=== PATIENT | male | born 1990 | race Caucasian/White ===

== ENCOUNTER 2016-07-02 22:53 | Emergency (ER) | payer SELFPAY ==
[~2016-07-02] VITALS: Ht 172.7 cm; Wt 72.6 kg
[2016-07-02 23:22] VITALS: BP 118/83
[2016-07-02 23:49] LABS: Basophils # (auto) 0.2 uL; Basophils % (auto) 1.2 % (0.0-2.0); Eosinophils # (auto) 0.1 uL; Eosinophils % (auto) 0.4 % (0.0-7.0); Hematocrit 50.6 % (41.0-53.0); Hemoglobin 16.9 g/dL (13.5-17.5); Lymphocytes # (auto) 1.6 uL; Mean Corpuscular Hgb Conc. 33.4 g/dL (32.0-36.0); Mean Corpuscular Volume 95.8 fL (80.0-100.0); Monocytes # (auto) 0.7 uL; Monocytes % (auto) 5.6 % (0.0-12.0); Neutrophils # (auto) 10.1 uL; Neutrophils % (auto) 79.8 % (37.0-80.0); Platelet Count (auto) 362 10^3/uL (140-450); Red Cell Distribution Width 11.9 % (11.6-16.0); SUSPECT VIEW TRANSMISSION; White Blood Cell 12.7 10^3/uL (4.4-10.8)
[2016-07-02 23:58] LABS: INR 1.11 (0.9-1.15); Partial Thromboplastin Time 24.2 sec (22.64-33.71); Prothrombin Time 11.4 sec (9.37-12.3)
[2016-07-03 00:03] LABS: Potassium 4.4 mmol/L (3.5-5.1)
[2016-07-03 00:08] LABS: Albumin 4.8 g/dL (3.4-5.0); BUN/Creatinine Ratio 10.8
[2016-07-03 00:24] LABS: Bilirubin, Total 0.2 mg/dL (0.2-1.0); Total Protein 8.4 g/dL (6.4-8.2)
== END 2016-07-03 05:28 | disposition left against medical advice (07) ==
LOC: ER 22:58
DX: R07.81 Pleurodynia (principal); Z53.21 Procedure and treatment not carried out due to patient leaving prior to being seen by health care provider; Y08.89XA Assault by other specified means, initial encounter; Y93.89 Activity, other specified; Y99.8 Other external cause status; Y92.89 Other specified places as the place of occurrence of the external cause
CPT/HCPCS: 36415; 70450; 70486; 72125; 80053; 80320; 85025; 85610; 85730; 99281; G0434; 71101

== ENCOUNTER 2018-06-27 10:31 | Emergency (ER) | payer SELFPAY ==
[~2018-06-27] VITALS: Ht 170.2 cm; Wt 77.1 kg
[2018-06-27 10:46] VITALS: BP 142/89
== END 2018-06-27 11:34 | disposition left against medical advice (07) ==
LOC: EDBD 10:31 → ER 10:31
DX: K52.9 Noninfective gastroenteritis and colitis, unspecified (principal)

== ENCOUNTER 2020-05-25 06:11 | Emergency (ER) | payer MEDICAID ==
[~2020-05-25] VITALS: Ht 177.8 cm; Wt 77.1 kg
[2020-05-25 06:55] VITALS: BP 112/65
== END 2020-05-25 09:18 | disposition left against medical advice (07) ==
LOC: EDBD 06:11 → ER 06:11
DX: R56.9 Unspecified convulsions (principal); R11.2 Nausea with vomiting, unspecified; Z53.21 Procedure and treatment not carried out due to patient leaving prior to being seen by health care provider
CPT/HCPCS: 70450

== ENCOUNTER 2021-05-10 07:25 | Emergency (ER) | payer MEDICAID ==
[~2021-05-10] VITALS: Ht 175.3 cm; Wt 79.4 kg
[2021-05-10] MEDS ORDERED: PROMETHAZINE HCL 25 MG/ML 1ML IV ONE (08:00)
[2021-05-10 08:06] VITALS: BP 106/73
[2021-05-10] MEDS ORDERED: SODIUM CHLORIDE 0.9% 1,000 ML IV ONE ×2 (08:30)
[2021-05-10 09:20] LABS: Albumin 3.9 g/dL (3.4-5.0); Calcium 8.4 mg/dL (8.5-10.1); Potassium 3.9 mmol/L (3.5-5.1)
[2021-05-10 09:22] LABS: Basophils # (auto) 0 10 ^3/uL (0-0.2); Basophils % (auto) 0.2 % (0.0-2.0); Eosinophils # (auto) 0 10 ^3/uL (0-0.8); Hematocrit 41.1 % (41.0-53.0); Hemoglobin 14.1 g/dL (13.5-17.5); Lymphocytes # (auto) 0.3 10 ^3/uL (0.4-5.4); Lymphocytes % (auto) 2.5 % (10.0-50.0); Mean Corpuscular Hemoglobin 33.4 pg (28.0-32.0); Mean Corpuscular Hgb Conc. 34.2 g/dL (32.0-36.0); Mean Corpuscular Volume 97.5 fL (80.0-100.0); Monocytes # (auto) 0.8 10 ^3/uL (0-1.3); Monocytes % (auto) 6.1 % (0.0-12.0); Neutrophils % (auto) 91.2 % (37.0-80.0); Nucleated Red Blood Cells % 0.1 %; Red Blood Cells 4.22 10^6/uL (4.5-5.90); Red Cell Distribution Width 12.9 % (11.8-14.3); White Blood Cell 13.2 10^3/uL (4.4-10.8)
[2021-05-10 09:24] LABS: BUN/Creatinine Ratio 13.5; Bilirubin, Total 0.5 mg/dL (0.2-1.0); Total Protein 7.2 g/dL (6.4-8.2)
[2021-05-10] MEDS ORDERED: KETOROLAC TROMETH 30 MG/ML 1ML VIAL IV ONE (09:30)
[2021-05-10 10:00] LABS: Amphetamine Screen, Urine NEGATIVE (NEGATIVE); Barbiturate Scree,Urine NEGATIVE (NEGATIVE); Benzodiazephine Screen, Urine NEGATIVE (NEGATIVE); Cannabinoid Screen, Urine POSITIVE (NEGATIVE); Cocaine Screen, Urine NEGATIVE (NEGATIVE); Phencyclidine Screen, Urine NEGATIVE (NEGATIVE)
[2021-05-10 10:08] LABS: Opiate Scree,Urine NEGATIVE (NEGATIVE)
[2021-05-10 10:40] LABS: Urine Bacteria FEW /hpf (None Seen); Urine Blood TRACE /uL (Negative); Urine Specific Gravity 1.014 (1.001-1.035); Urine WBC <1 /hpf (0 - 3)
== END 2021-05-10 13:16 | disposition home or self-care (01) ==
LOC: ER 07:25 → EDBD 07:25 → ER 13:16
DX: G40.909 Epilepsy, unspecified, not intractable, without status epilepticus (principal); R51.9 Headache, unspecified; R11.2 Nausea with vomiting, unspecified
CPT/HCPCS: 36415; 70450; 74176; 80053; 80307; 80320; 81001; 84484; 85025; 96361; 96374; 96375; 99284; J1885; J2550

== ENCOUNTER 2021-05-28 09:14 | Emergency (ER) | payer MEDICAID ==
[~2021-05-28] VITALS: Ht 180.3 cm; Wt 79.4 kg
[2021-05-28] MEDS ORDERED: SODIUM CHLORIDE 0.9% 1,000 ML IV ONE ×2 (09:30)
[2021-05-28] MEDS ORDERED: LORazepam 2MG/ML-1ML VIAL ONE (09:42)
[2021-05-28] MEDS ORDERED: LORazepam 2MG/ML-1ML VIAL IV ONE (09:45)
[2021-05-28] MEDS ORDERED: ONDANSETRON HCL 4 MG/2 ML VIAL IV ONE (12:15)
[2021-05-28 13:00] LABS: Basophils # (auto) 0 10 ^3/uL (0-0.2); Basophils % (auto) 0.1 % (0.0-2.0); Eosinophils # (auto) 0 10 ^3/uL (0-0.8); Hematocrit 44.3 % (41.0-53.0); Lymphocytes # (auto) 0.4 10 ^3/uL (0.4-5.4); Mean Corpuscular Hemoglobin 33.3 pg (28.0-32.0); Mean Corpuscular Hgb Conc. 33.8 g/dL (32.0-36.0); Mean Corpuscular Volume 98.3 fL (80.0-100.0); Monocytes # (auto) 1.3 10 ^3/uL (0-1.3); Monocytes % (auto) 7.5 % (0.0-12.0); Neutrophils # (auto) 16.2 10 ^3/uL (1.6-8.6); Neutrophils % (auto) 90.4 % (37.0-80.0); Red Blood Cells 4.51 10^6/uL (4.5-5.90); Red Cell Distribution Width 13.3 % (11.8-14.3); White Blood Cell 17.9 10^3/uL (4.4-10.8)
[2021-05-28 13:03] LABS: Urine Bacteria NONE SEEN /hpf (None Seen); Urine Blood 1+ /uL (Negative); Urine Specific Gravity 1.013 (1.001-1.035); Urine WBC 39 /hpf (0 - 3)
[2021-05-28 13:15] LABS: Amphetamine Screen, Urine NEGATIVE (NEGATIVE); Barbiturate Scree,Urine NEGATIVE (NEGATIVE); Benzodiazephine Screen, Urine POSITIVE (NEGATIVE); Cannabinoid Screen, Urine POSITIVE (NEGATIVE); Cocaine Screen, Urine NEGATIVE (NEGATIVE); Opiate Scree,Urine NEGATIVE (NEGATIVE); Phencyclidine Screen, Urine NEGATIVE (NEGATIVE)
[2021-05-28 13:24] LABS: Albumin 4.2 g/dL (3.4-5.0); BUN/Creatinine Ratio 16.8; Calcium 8.8 mg/dL (8.5-10.1); Magnesium 2.9 mg/dL (1.6-2.6); Potassium 4.4 mmol/L (3.5-5.1)
[2021-05-28 13:27] LABS: Bilirubin, Total 0.3 mg/dL (0.2-1.0); Total Protein 7.6 g/dL (6.4-8.2)
[2021-05-28 15:53] VITALS: BP 119/65
== END 2021-05-28 16:20 | disposition home or self-care (01) ==
LOC: ER 09:14 → EDBD 09:14 → ER 16:20
DX: G40.909 Epilepsy, unspecified, not intractable, without status epilepticus (principal)
CPT/HCPCS: 36415; 70450; 80053; 80164; 80307; 81001; 83735; 85025; 96374; 96375; 99284; J1953; J2060; J2405; J7030; J7060

== ENCOUNTER 2021-08-01 09:44 | Emergency (ER) | payer MEDICAID ==
[~2021-08-01] VITALS: Ht 175.3 cm; Wt 68.0 kg
[2021-08-01] MEDS ORDERED: LORazepam 2MG/ML-1ML VIAL IV ONE (10:00)
[2021-08-01] MEDS ORDERED: SODIUM CHLORIDE 0.9% 1,000 ML IV ONE (10:15)
[2021-08-01] MEDS ORDERED: SODIUM CHLORIDE 0.9% 500 ML IVB ONE (10:15)
[2021-08-01 10:17] LABS: Basophils # (auto) 0 10 ^3/uL (0-0.2); Basophils % (auto) 0.3 % (0.0-2.0); Eosinophils # (auto) 0 10 ^3/uL (0-0.8); Hemoglobin 14.6 g/dL (13.5-17.5); Lymphocytes # (auto) 1.9 10 ^3/uL (0.4-5.4); White Blood Cell 13.1 10^3/uL (4.4-10.8)
[2021-08-01 10:19] LABS: Eosinophils % (auto) 0.3 % (0.0-7.0); Hematocrit 44.9 % (41.0-53.0); Lymphocytes % (auto) 14.2 % (10.0-50.0); Mean Corpuscular Hemoglobin 33.7 pg (28.0-32.0); Mean Corpuscular Hgb Conc. 32.6 g/dL (32.0-36.0); Mean Corpuscular Volume 103.5 fL (80.0-100.0); Monocytes # (auto) 0.7 10 ^3/uL (0-1.3); Monocytes % (auto) 5.4 % (0.0-12.0); Neutrophils # (auto) 10.5 10 ^3/uL (1.6-8.6); Neutrophils % (auto) 79.8 % (37.0-80.0); Red Blood Cells 4.34 10^6/uL (4.5-5.90); Red Cell Distribution Width 13.5 % (11.8-14.3)
[2021-08-01 10:24] LABS: Albumin 4.3 g/dL (3.4-5.0); Calcium 8.6 mg/dL (8.5-10.1); Potassium 3.9 mmol/L (3.5-5.1)
[2021-08-01 10:33] LABS: BUN/Creatinine Ratio 11.1; Bilirubin, Total 0.3 mg/dL (0.2-1.0)
[2021-08-01 10:55] LABS: Blood Alcohol < 3.0 mg/dL (0-5); Magnesium 2.2 mg/dL (1.6-2.6)
[2021-08-01 12:31] LABS: Urine WBC None Seen /hpf (0 - 3)
[2021-08-01 12:48] LABS: Urine Bacteria NONE SEEN /hpf (None Seen); Urine Blood Negative /uL (Negative); Urine Specific Gravity 1.017 (1.001-1.035)
[2021-08-01 13:02] LABS: Amphetamine Screen, Urine NEGATIVE (NEGATIVE); Barbiturate Scree,Urine NEGATIVE (NEGATIVE); Benzodiazephine Screen, Urine POSITIVE (NEGATIVE); Cannabinoid Screen, Urine POSITIVE (NEGATIVE); Cocaine Screen, Urine NEGATIVE (NEGATIVE); Phencyclidine Screen, Urine NEGATIVE (NEGATIVE)
[2021-08-01 13:10] LABS: Opiate Scree,Urine NEGATIVE (NEGATIVE)
[2021-08-01 15:51] VITALS: BP 111/72
== END 2021-08-01 15:18 | disposition home or self-care (01) ==
LOC: EDBD 09:44 → ER 09:44 → EDUNIT# 09:44 → ER 15:18
DX: S00.83XA Contusion of other part of head, initial encounter (principal); G40.909 Epilepsy, unspecified, not intractable, without status epilepticus; R73.9 Hyperglycemia, unspecified; F12.10 Cannabis abuse, uncomplicated; W19.XXXA Unspecified fall, initial encounter; Y93.89 Activity, other specified; Y92.89 Other specified places as the place of occurrence of the external cause; Y99.8 Other external cause status
CPT/HCPCS: 36415; 70450; 70486; 71045; 80053; 80307; 80320; 81001; 83735; 84443; 84484; 85025; 93005; 96361; 96374; 99285; J2060; J7030; J7040

== ENCOUNTER 2021-08-30 16:48 | Emergency (ER) | payer MEDICAID ==
[~2021-08-30] VITALS: Ht 170.2 cm; Wt 59.0 kg
[2021-08-30] MEDS ORDERED: SODIUM CHLORIDE 0.9% 1,000 ML IV ONE (17:30)
[2021-08-30] MEDS ORDERED: ONDANSETRON HCL 4 MG/2 ML VIAL IV ONE (17:30)
[2021-08-30] MEDS ORDERED: KETOROLAC TROMETH 30 MG/ML 1ML VIAL IV ONE (17:45)
[2021-08-30 19:18] LABS: Basophils # (auto) 0 10 ^3/uL (0-0.2); Basophils % (auto) 0.5 % (0.0-2.0); Eosinophils # (auto) 0 10 ^3/uL (0-0.8); Hematocrit 36.7 % (41.0-53.0); Hemoglobin 12.6 g/dL (13.5-17.5); Lymphocytes # (auto) 0.8 10 ^3/uL (0.4-5.4); Lymphocytes % (auto) 8.9 % (10.0-50.0); Mean Corpuscular Hemoglobin 33.6 pg (28.0-32.0); Mean Corpuscular Hgb Conc. 34.3 g/dL (32.0-36.0); Monocytes # (auto) 0.8 10 ^3/uL (0-1.3); Neutrophils # (auto) 7.6 10 ^3/uL (1.6-8.6); Neutrophils % (auto) 81.6 % (37.0-80.0); Red Blood Cells 3.75 10^6/uL (4.5-5.90); White Blood Cell 9.4 10^3/uL (4.4-10.8)
[2021-08-30 19:35] LABS: Albumin 3.4 g/dL (3.4-5.0); BUN/Creatinine Ratio 16.7; Calcium 8.3 mg/dL (8.5-10.1); Potassium 3.8 mmol/L (3.5-5.1)
[2021-08-30 19:51] LABS: Bilirubin, Total 0.5 mg/dL (0.2-1.0); Total Protein 6.5 g/dL (6.4-8.2)
[2021-08-30 20:52] VITALS: BP 107/46
[2021-08-30 21:11] LABS: Urine Bacteria NONE SEEN /hpf (None Seen); Urine Blood Negative /uL (Negative); Urine Budding Yeast MANY /hpf (None Seen); Urine Specific Gravity 1.025 (1.001-1.035); Urine WBC 37 /hpf (0 - 3)
== END 2021-08-30 21:17 | disposition home or self-care (01) ==
LOC: ER 16:48
DX: G40.909 Epilepsy, unspecified, not intractable, without status epilepticus (principal); K21.9 Gastro-esophageal reflux disease without esophagitis
CPT/HCPCS: 36415; 71045; 74176; 80053; 80164; 81001; 83690; 85025; 96361; 96374; 96375; 99285; J1885; J2405; J7030

== ENCOUNTER 2022-07-11 11:20 | Emergency (ER) | payer MEDICAID ==
[~2022-07-11] VITALS: Ht 167.6 cm; Wt 62.0 kg
[2022-07-11 11:34] VITALS: BP 130/91
[2022-07-11] MEDS ORDERED: ONDANSETRON ODT 4 MG TAB PO ONE (12:00)
[2022-07-11] MEDS ORDERED: KETOROLAC TROMETH 60MG/2ML VIAL IM ONE (12:00)
[2022-07-11 13:29] LABS: Urine Bacteria NONE SEEN /hpf (None Seen); Urine Blood Negative /uL (Negative); Urine Mucus FEW (None Seen); Urine Specific Gravity 1.024 (1.001-1.035); Urine WBC <1 /hpf (0 - 3)
== END 2022-07-11 14:31 | disposition left against medical advice (07) ==
LOC: ER 11:20
DX: G40.909 Epilepsy, unspecified, not intractable, without status epilepticus (principal); K21.9 Gastro-esophageal reflux disease without esophagitis; F10.90 Alcohol use, unspecified, uncomplicated; F12.90 Cannabis use, unspecified, uncomplicated
CPT/HCPCS: 36415; 80164; 81001; 96372; 99283; J1885; Q0162

== ENCOUNTER 2022-07-11 21:11 | Inpatient (IN) | payer MEDICAID ==
[~2022-07-11] VITALS: Ht 162.6 cm; Wt 68.0 kg
[2022-07-11] MEDS ORDERED: LORazepam 2MG/ML-1ML VIAL IV ONE (22:45)
[2022-07-11] MEDS ORDERED: SODIUM CHLORIDE 0.9% 1,000 ML IV ONE (22:45)
[2022-07-11] MEDS ORDERED: VALPROATE INJ 500 MG in SODIUM CHL 0.9% 100 ML IV ONE (22:45)
[2022-07-11] MEDS ORDERED: VALPROATE SODIUM 100 MG/ML 5ML VIAL IV ONE (23:23)
[2022-07-11 23:45] LABS: Eosinophils # (auto) 0 10 ^3/uL (0-0.8); Neutrophils # (auto) 9.6 10 ^3/uL (1.6-8.6); Red Cell Distribution Width 13.1 % (11.8-14.3)
[2022-07-11 23:48] LABS: Basophils # (auto) 0 10 ^3/uL (0-0.2); Basophils % (auto) 0.1 % (0.0-2.0); Hematocrit 41.4 % (41.0-53.0); Hemoglobin 14.1 g/dL (13.5-17.5); Lymphocytes # (auto) 1.2 10 ^3/uL (0.4-5.4); Lymphocytes % (auto) 9.5 % (10.0-50.0); Mean Corpuscular Hemoglobin 34.4 pg (28.0-32.0); Mean Corpuscular Hgb Conc. 34.2 g/dL (32.0-36.0); Mean Corpuscular Volume 100.6 fL (80.0-100.0); Monocytes # (auto) 1.5 10 ^3/uL (0-1.3); Monocytes % (auto) 12.4 % (0.0-12.0); Red Blood Cells 4.11 10^6/uL (4.5-5.90); White Blood Cell 12.4 10^3/uL (4.4-10.8)
[2022-07-12 00:05] LABS: Albumin 4.1 g/dL (3.4-5.0); Calcium 9.3 mg/dL (8.5-10.1); Potassium 3.7 mmol/L (3.5-5.1)
[2022-07-12 00:07] LABS: BUN/Creatinine Ratio 17.2
[2022-07-12 00:10] LABS: Bilirubin, Total 0.7 mg/dL (0.2-1.0); Total Protein 7.5 g/dL (6.4-8.2)
[2022-07-12] MEDS ORDERED: TEMAZEPAM 15 MG CAP PO PRN (03:00)
[2022-07-12] MEDS ORDERED: ACETAMINOPHEN 325 MG TAB PO PRN (03:00)
[2022-07-12] MEDS ORDERED: ONDANSETRON HCL 4 MG/2 ML VIAL IV PRN (03:00)
[2022-07-12 05:35] LABS: Urine Bacteria NONE SEEN /hpf (None Seen); Urine Blood 2+ /uL (Negative); Urine Hyaline Cast FEW /lpf (0 - 2); Urine Specific Gravity 1.018 (1.001-1.035); Urine WBC 2 /hpf (0 - 3)
[2022-07-12] MEDS ORDERED: LORazepam 2MG/ML-1ML VIAL IV PRN ×2 (09:15)
[2022-07-12] MEDS ORDERED: LACOSAMIDE 50 MG TAB PO SCH (10:00)
[2022-07-12] MEDS ORDERED: PANTOPRAZOLE 40 MG TAB PO SCH (10:00)
[2022-07-12] MEDS ORDERED: FOLIC ACID 1 MG, MULTIPLE VITAMIN 10 ML, MAGNESIUM SULF SDV 50% 8 MEQ, THIAMINE INJ 100... INJ SCH ×5 (12:00)
[2022-07-12 18:00] VITALS: BP 117/65
== END 2022-07-12 20:08 | disposition left against medical advice (07) | DRG 53 ==
LOC: EDBD 21:11 → ER 21:13 → OVERFLOW 07-12 02:54
PROVIDERS: ADMIT Nurse Practitioner; ATTEND Internal Medicine Pulmonary Disease
DX: G40.909 Epilepsy, unspecified, not intractable, without status epilepticus (principal); F17.210 Nicotine dependence, cigarettes, uncomplicated; K21.9 Gastro-esophageal reflux disease without esophagitis; Z20.822 Contact with and (suspected) exposure to COVID-19; Z53.29 Procedure and treatment not carried out because of patient's decision for other reasons; Z79.899 Other long term (current) drug therapy
CPT/HCPCS: 36415; 70450; 70551; 71045; 80053; 81001; 85025; 87426; 95819; 96361; 96365; 96375; G0378

== ENCOUNTER 2022-09-23 08:49 | Inpatient (IN) | payer MEDICAID ==
[~2022-09-23] VITALS: Ht 170.2 cm; Wt 66.0 kg
[2022-09-23] MEDS ORDERED: ONDANSETRON HCL 4 MG/2 ML VIAL IV ONE (09:15)
[2022-09-23] MEDS ORDERED: LORazepam 2MG/ML-1ML VIAL ONE (09:20)
[2022-09-23] MEDS ORDERED: levETIRAcetam 500 MG/5ML INJ IV ONE ×2 (09:29→09:54)
[2022-09-23 13:09] LABS: Basophils # (auto) 0 10 ^3/uL (0-0.2); Basophils % (auto) 0.1 % (0.0-2.0); Eosinophils # (auto) 0 10 ^3/uL (0-0.8); Hemoglobin 14.8 g/dL (13.5-17.5); Lymphocytes # (auto) 0.4 10 ^3/uL (0.4-5.4); Lymphocytes % (auto) 2.3 % (10.0-50.0); Mean Corpuscular Hemoglobin 33.9 pg (28.0-32.0); Mean Corpuscular Hgb Conc. 33.6 g/dL (32.0-36.0); Mean Corpuscular Volume 100.8 fL (80.0-100.0); Monocytes # (auto) 1.6 10 ^3/uL (0-1.3); Monocytes % (auto) 9.4 % (0.0-12.0); Neutrophils # (auto) 14.9 10 ^3/uL (1.6-8.6); Neutrophils % (auto) 88.2 % (37.0-80.0); Red Blood Cells 4.37 10^6/uL (4.5-5.90); Red Cell Distribution Width 13.1 % (11.8-14.3); White Blood Cell 16.9 10^3/uL (4.4-10.8)
[2022-09-23 13:32] LABS: INR 1.01 (0.9-1.15); Partial Thromboplastin Time 22.3 sec (24.6-33.4)
[2022-09-23 13:33] LABS: BUN/Creatinine Ratio 15.2 (10.0-20.0); Calcium 9.1 mg/dL (8.5-10.1); Magnesium 2.2 mg/dL (1.6-2.6); Potassium 3.8 mmol/L (3.5-5.1)
[2022-09-23 13:36] LABS: Bilirubin, Total 0.4 mg/dL (0.2-1.0); Total Protein 7.5 g/dL (6.4-8.2)
[2022-09-23] MEDS ORDERED: FAMO20TA10 PO (15:09)
[2022-09-23] MEDS ORDERED: LACO100T PO (15:09)
[2022-09-23] MEDS ORDERED: DIVA1TAB39 PO (15:09)
[2022-09-23] MEDS ORDERED: ACETAMINOPHEN 325 MG TAB PO PRN (15:15)
[2022-09-23] MEDS ORDERED: NITROGLYCERIN 0.4 MG SL TAB SL PRN (15:15)
[2022-09-23] MEDS ORDERED: SODIUM CHLORIDE 0.9% 1,000 ML IVB ONE (15:15)
[2022-09-23] MEDS ORDERED: THIAMINE HCL 100 MG TAB PO ONE (15:15)
[2022-09-23] MEDS ORDERED: LORazepam 2MG/ML-1ML VIAL IV PRN (15:15)
[2022-09-23] MEDS ORDERED: FOLIC ACID 1 MG TAB PO ONE (15:15)
[2022-09-23] MEDS ORDERED: MULTIPLE VITAMIN TAB PO ONE (15:15)
[2022-09-23] MEDS ORDERED: MORPHINE SULFATE INJ 2 MG/ml SYRG IV PRN (15:15)
[2022-09-23] MEDS ORDERED: chlordiazePOXIDE HCL 25 MG CAP PO ONE (15:15)
[2022-09-23 15:30] LABS: Urine Bacteria NONE SEEN /hpf (None Seen); Urine Blood Negative /uL (Negative); Urine WBC <1 /hpf (0 - 3)
[2022-09-23] MEDS: SODIUM CHLORIDE 0.9% 1,000 ML IV SCH ×2 (15:35→15:57)
[2022-09-23 15:40] LABS: Alcohol, Urine < 3.0 mg/dL (0-10); Amphetamine Screen, Urine NEGATIVE (NEGATIVE); Barbiturate Scree,Urine NEGATIVE (NEGATIVE); Benzodiazephine Screen, Urine NEGATIVE (NEGATIVE); Cannabinoid Screen, Urine POSITIVE (NEGATIVE)
[2022-09-23 15:48] LABS: Cocaine Screen, Urine NEGATIVE (NEGATIVE); Opiate Scree,Urine NEGATIVE (NEGATIVE); Phencyclidine Screen, Urine NEGATIVE (NEGATIVE)
[2022-09-23] MEDS: LACOSAMIDE 50 MG TAB PO SCH (22:57)
[2022-09-24 05:17] LABS: Basophils # (auto) 0 10 ^3/uL (0-0.2); Lymphocytes # (auto) 1.8 10 ^3/uL (0.4-5.4); Monocytes # (auto) 1.1 10 ^3/uL (0-1.3); Red Blood Cells 3.89 10^6/uL (4.5-5.90)
[2022-09-24 05:18] LABS: Basophils % (auto) 0.2 % (0.0-2.0); Eosinophils # (auto) 0 10 ^3/uL (0-0.8); Eosinophils % (auto) 0.3 % (0.0-7.0); Hematocrit 38.9 % (41.0-53.0); Hemoglobin 13.6 g/dL (13.5-17.5); Lymphocytes % (auto) 16.9 % (10.0-50.0); Mean Corpuscular Hemoglobin 34.9 pg (28.0-32.0); Mean Corpuscular Hgb Conc. 34.9 g/dL (32.0-36.0); Monocytes % (auto) 10.5 % (0.0-12.0); Neutrophils # (auto) 7.6 10 ^3/uL (1.6-8.6); Neutrophils % (auto) 72.1 % (37.0-80.0); Nucleated Red Blood Cells % 0.1 %; Red Cell Distribution Width 13.4 % (11.8-14.3); White Blood Cell 10.5 10^3/uL (4.4-10.8)
[2022-09-24 05:19] LABS: Albumin 3.3 g/dL (3.4-5.0); Calcium 8.4 mg/dL (8.5-10.1); Potassium 3.3 mmol/L (3.5-5.1)
[2022-09-24 05:23] LABS: BUN/Creatinine Ratio 16.7 (10.0-20.0); Bilirubin, Total 0.7 mg/dL (0.2-1.0); Total Protein 6.5 g/dL (6.4-8.2)
[2022-09-24 09:12] VITALS: BP 103/56
[2022-09-24] MEDS ORDERED: MULTIPLE VITAMIN TAB PO SCH (10:00)
[2022-09-24] MEDS ORDERED: FOLIC ACID 1 MG TAB PO SCH (10:00)
[2022-09-24] MEDS ORDERED: THIAMINE HCL 100 MG TAB PO SCH (10:00)
[2022-09-24] MEDS ORDERED: ENOXAPARIN SOD 40 MG/0.4 ML SYRINGE SC SCH (10:00)
[2022-09-24] MEDS: LACOSAMIDE 50 MG TAB PO SCH (10:33)
== END 2022-09-24 10:45 | disposition left against medical advice (07) | DRG 53 ==
LOC: ER 08:49 → EDBD 08:49 → TELE 15:09
PROVIDERS: ADMIT Nurse Practitioner Family; ATTEND Nurse Practitioner Family
DX: G40.909 Epilepsy, unspecified, not intractable, without status epilepticus (principal); D72.829 Elevated white blood cell count, unspecified; F10.239 Alcohol dependence with withdrawal, unspecified; K21.9 Gastro-esophageal reflux disease without esophagitis; Z53.29 Procedure and treatment not carried out because of patient's decision for other reasons; Z20.822 Contact with and (suspected) exposure to COVID-19; Z91.14 Patient's other noncompliance with medication regimen; Z71.41 Alcohol abuse counseling and surveillance of alcoholic
CPT/HCPCS: 36415; 70450; 71045; 80053; 80307; 80320; 81001; 83605; 83735; 84484; 85025; 85610; 85730; 87040; 87426; 96374; G0378; J2405; J7060

== ENCOUNTER 2022-09-30 10:30 | Emergency (ER) | payer MEDICAID ==
[~2022-09-30] VITALS: Ht 167.6 cm; Wt 78.0 kg
[~2022-09-30 10:30] MED LIST: DIVA1TAB39 PO; FAMO20TA10 PO; LACO100T PO
[2022-09-30] MEDS ORDERED: LORazepam 2MG/ML-1ML VIAL ONE (11:32)
[2022-09-30] MEDS ORDERED: LORazepam 2MG/ML-1ML VIAL IV ONE (11:45)
[2022-09-30] MEDS ORDERED: TETANUS-DIPTH-ACEL PERTUSSIS 0.5ML SYR Tdap IM ONE (11:45)
[2022-09-30 11:59] LABS: Basophils # (auto) 0 10 ^3/uL (0-0.2); Eosinophils # (auto) 0 10 ^3/uL (0-0.8); Lymphocytes # (auto) 0.7 10 ^3/uL (0.4-5.4); Lymphocytes % (auto) 3.8 % (10.0-50.0); Mean Corpuscular Volume 105.1 fL (80.0-100.0); White Blood Cell 19.5 10^3/uL (4.4-10.8)
[2022-09-30 12:01] LABS: Basophils % (auto) 0.2 % (0.0-2.0); Hematocrit 49.8 % (41.0-53.0); Mean Corpuscular Hemoglobin 33.8 pg (28.0-32.0); Mean Corpuscular Hgb Conc. 32.1 g/dL (32.0-36.0); Monocytes # (auto) 2.7 10 ^3/uL (0-1.3); Nucleated Red Blood Cells % 0.1 %; Red Blood Cells 4.73 10^6/uL (4.5-5.90); Red Cell Distribution Width 13.7 % (11.8-14.3)
[2022-09-30 12:14] LABS: Calcium 9.7 mg/dL (8.5-10.1); Magnesium 2.2 mg/dL (1.6-2.6); Potassium 3.9 mmol/L (3.5-5.1)
[2022-09-30 12:20] LABS: Albumin 4.5 g/dL (3.4-5.0); BUN/Creatinine Ratio 6.5 (10.0-20.0); Bilirubin, Total 0.8 mg/dL (0.2-1.0); Phosphorus 1.9 mg/dL (2.5-4.90)
[2022-09-30 14:01] LABS: Urine Bacteria NONE SEEN /hpf (None Seen); Urine Blood TRACE /uL (Negative); Urine Specific Gravity 1.017 (1.001-1.035); Urine WBC 1 /hpf (0 - 3)
[2022-09-30 15:04] LABS: Alcohol, Urine < 3.0 mg/dL (0-10); Amphetamine Screen, Urine NEGATIVE (NEGATIVE); Barbiturate Scree,Urine NEGATIVE (NEGATIVE); Cannabinoid Screen, Urine POSITIVE (NEGATIVE)
[2022-09-30 15:12] LABS: Benzodiazephine Screen, Urine NEGATIVE (NEGATIVE); Cocaine Screen, Urine NEGATIVE (NEGATIVE); Opiate Scree,Urine NEGATIVE (NEGATIVE); Phencyclidine Screen, Urine NEGATIVE (NEGATIVE)
[2022-09-30] MEDS ORDERED: LIDOCAINE 2%HCL (LOCAL ANESTH.) INJ 10ml MDV ONE (16:36)
[2022-09-30 17:00] VITALS: BP 119/72
== END 2022-09-30 18:48 | disposition home or self-care (01) ==
LOC: EDBD 10:30 → ER 10:30
DX: G40.909 Epilepsy, unspecified, not intractable, without status epilepticus (principal); Z79.899 Other long term (current) drug therapy
CPT/HCPCS: 36415; 70450; 80053; 80164; 80307; 80320; 81001; 82962; 83735; 84100; 85025; 90471; 90715; 96365; 96375; 99285; J1953; J2001; J2060; J7060

== ENCOUNTER 2024-03-22 22:24 | Inpatient (IN) | payer MEDICAID ==
[~2024-03-22] VITALS: Ht 177.8 cm; Wt 104.2 kg
[2024-03-22 23:20] VITALS: RESP 16; O2SAT 96
[2024-03-22] MEDS: LORazepam 2MG/ML-1ML VIAL IV ONE (23:20)
[2024-03-22] MEDS: levETIRAcetam 1000 mg/100ml 100 ML IV ONE (23:20)
[2024-03-22 23:47] LABS: Basophils # (auto) 0 10 ^3/uL (0-0.2); Eosinophils # (auto) 0 10 ^3/uL (0-0.8); Hematocrit 39.5 % (41.0-53.0); Lymphocytes # (auto) 0.4 10 ^3/uL (0.4-5.4); Neutrophils # (auto) 9.7 10 ^3/uL (1.6-8.6); Platelet Count (auto) 123 10^3/uL (140-450)
[2024-03-22 23:49] LABS: Basophils % (auto) 0.2 % (0.0-2.0); Hemoglobin 13.6 g/dL (13.5-17.5); Lymphocytes % (auto) 3.8 % (10.0-50.0); Mean Corpuscular Hgb Conc. 34.5 g/dL (32.0-36.0); Mean Corpuscular Volume 101.4 fL (80.0-100.0); Monocytes # (auto) 1.1 10 ^3/uL (0-1.3); Monocytes % (auto) 9.5 % (0.0-12.0); Neutrophils % (auto) 86.5 % (37.0-80.0); Red Cell Distribution Width 14.1 % (11.8-14.3); White Blood Cell 11.2 10^3/uL (4.4-10.8)
[2024-03-23 00:01] LABS: Alanine Aminotransferase 22 U/L (7-40); Albumin 4.4 g/dL (3.2-4.8); Alkaline Phosphatase 48 U/L (46-116); Anion Gap 9 (5-15); Aspartate Aminotransferase 21 U/L (13-40); Blood Alcohol < 3.0 mg/dL (<10); Blood Urea Nitrogen 9 mg/dL (9-23); Calcium 9.8 mg/dL (8.7-10.4); Carbon Dioxide 20 mmol/L (20-30); Chloride 108 mmol/L (98-107); Glucose 88 mg/dL (74-106); Potassium 4.2 mmol/L (3.5-5.1); Sodium 137 mmol/L (136-145)
[2024-03-23 00:02] LABS: Bilirubin, Total 0.7 mg/dL (0.2-1.0); Total Protein 7.1 g/dL (5.7-8.2)
[2024-03-23] MEDS: SODIUM CHLORIDE 0.9% 1,000 ML IV ONE ×3 (00:40→05:10)
[2024-03-23 06:38] LABS: Urine Bacteria None Seen /hpf (None Seen); Urine WBC None Seen /hpf (0 - 3)
[2024-03-23 07:10] LABS: Amphetamine Screen, Urine Neg (NEGATIVE); Barbiturate Scree,Urine Neg (NEGATIVE); Benzodiazephine Screen, Urine Neg (NEGATIVE); Cocaine Screen, Urine Neg (NEGATIVE)
[2024-03-23 07:11] LABS: Cannabinoid Screen, Urine Pos (NEGATIVE); Opiate Scree,Urine Neg (NEGATIVE); Phencyclidine Screen, Urine Neg (NEGATIVE)
[2024-03-23 07:30] VITALS: PULSE 61; RESP 14; O2SAT 97
[2024-03-23 08:09] LABS: Urine Blood 1+ /uL (Negative); Urine Clarity Clear (Clear); Urine Color Light-Yellow (Yellow); Urine Mucus FEW (None Seen); Urine Protein, UAD Negative (Negative); Urine Specific Gravity 1.017 (1.001-1.035); Urine Urobilinogen Normal (Negative); Urine pH 5.5 (5.0-9.0)
[2024-03-23] MEDS ORDERED: NITROGLYCERIN 0.4 MG SL TAB SL PRN (09:00)
[2024-03-23] MEDS ORDERED: MORPHINE SULFATE INJ 2 MG/ml SYRG IV PRN (09:00)
[2024-03-23] MEDS ORDERED: ACETAMINOPHEN 325 MG TAB PO PRN (09:00)
[2024-03-23] MEDS: SODIUM CHLORIDE 0.9% 1,000 ML IV SCH (09:22)
[2024-03-23 09:46] LABS: Basophils # (auto) 0 10 ^3/uL (0-0.2); Basophils % (auto) 0.2 % (0.0-2.0); Eosinophils # (auto) 0 10 ^3/uL (0-0.8); Lymphocytes # (auto) 1.5 10 ^3/uL (0.4-5.4); Red Cell Distribution Width 14.3 % (11.8-14.3)
[2024-03-23 09:50] LABS: Hematocrit 35.6 % (41.0-53.0); Hemoglobin 12.7 g/dL (13.5-17.5); Lymphocytes % (auto) 16.1 % (10.0-50.0); Mean Corpuscular Hemoglobin 35.2 pg (28.0-32.0); Mean Corpuscular Hgb Conc. 35.8 g/dL (32.0-36.0); Mean Corpuscular Volume 98.5 fL (80.0-100.0); Monocytes % (auto) 10.6 % (0.0-12.0); Neutrophils # (auto) 6.8 10 ^3/uL (1.6-8.6); Neutrophils % (auto) 73.1 % (37.0-80.0); Nucleated Red Blood Cells % 0.1 %; Platelet Count (auto) 112 10^3/uL (140-450); Red Blood Cells 3.62 10^6/uL (4.5-5.90); White Blood Cell 9.3 10^3/uL (4.4-10.8)
[2024-03-23] MEDS: FAMOTIDINE 20 MG TAB PO SCH (10:00)
[2024-03-23] MEDS: LACOSAMIDE 50 MG TAB PO SCH (10:00)
[2024-03-23] MEDS ORDERED: LORazepam 2MG/ML-1ML VIAL IV PRN (17:00)
[2024-03-23 17:39] VITALS: BP 95/51; PULSE 67; RESP 18; TEMP 98.1; O2SAT 99
[2024-03-23] MEDS: THIAMINE 100mg/ml INJ (200mg/2ml VIAL) IV SCH (17:55)
[2024-03-23] MEDS: FOLIC ACID 1 MG in D5W 5% 50 ML INJ SCH (18:00)
[2024-03-23 18:04] VITALS: O2SAT 96
[2024-03-23 20:00] VITALS: PULSE 55
[2024-03-23 21:00] VITALS: BP 93/55; PULSE 51; RESP 18; TEMP 98.7; O2SAT 96
[2024-03-24 01:00] VITALS: BP 104/53; PULSE 52; O2SAT 97
[2024-03-24 01:11] VITALS: PULSE 55
[2024-03-24 05:00] VITALS: BP 97/51; PULSE 61; O2SAT 97
[2024-03-24 07:01] LABS: Basophils # (auto) 0 10 ^3/uL (0-0.2); Basophils % (auto) 0.1 % (0.0-2.0); Eosinophils # (auto) 0 10 ^3/uL (0-0.8); Eosinophils % (auto) 0.1 % (0.0-7.0); Hemoglobin 13.7 g/dL (13.5-17.5); Lymphocytes # (auto) 1.6 10 ^3/uL (0.4-5.4); Monocytes # (auto) 0.6 10 ^3/uL (0-1.3); Neutrophils % (auto) 63.5 % (37.0-80.0); White Blood Cell 6.3 10^3/uL (4.4-10.8)
[2024-03-24 07:17] LABS: Hematocrit 38.6 % (41.0-53.0); Lymphocytes % (auto) 26.2 % (10.0-50.0); Mean Corpuscular Hemoglobin 35.2 pg (28.0-32.0); Mean Corpuscular Hgb Conc. 35.4 g/dL (32.0-36.0); Mean Corpuscular Volume 99.5 fL (80.0-100.0); Monocytes % (auto) 10.1 % (0.0-12.0); Nucleated Red Blood Cells % 0.1 %; Platelet Count (auto) 114 10^3/uL (140-450); Red Blood Cells 3.87 10^6/uL (4.5-5.90); Red Cell Distribution Width 14.1 % (11.8-14.3)
[2024-03-24 07:23] LABS: Alanine Aminotransferase 14 U/L (7-40); Alkaline Phosphatase 36 U/L (46-116); Anion Gap 8 (5-15); BUN/Creatinine Ratio 15.7 (10.0-20.0); Blood Urea Nitrogen 14 mg/dL (9-23); Calcium 9.1 mg/dL (8.7-10.4); Carbon Dioxide 22 mmol/L (20-30); Chloride 111 mmol/L (98-107); Glucose 65 mg/dL (74-106); Potassium 3.7 mmol/L (3.5-5.1); Sodium 141 mmol/L (136-145)
[2024-03-24 07:24] LABS: Albumin 3.7 g/dL (3.2-4.8); Aspartate Aminotransferase 15 U/L (13-40); Bilirubin, Total 0.5 mg/dL (0.2-1.0)
[2024-03-24 07:25] LABS: Total Protein 5.8 g/dL (5.7-8.2)
[2024-03-24 09:00] VITALS: BP 91/46; PULSE 53; RESP 18; TEMP 98; O2SAT 100
[2024-03-24 13:00] VITALS: BP 101/44; PULSE 53; RESP 20; TEMP 98.6; O2SAT 96
== END 2024-03-24 15:45 | disposition left against medical advice (07) | DRG 53 ==
LOC: EDUNIT# 22:24 → EDBD 22:24 → ER 22:24 → TELE 03-23 08:53 → TELE-E-ADS 03-23 16:43
PROVIDERS: ADMIT Nurse Practitioner Family; ATTEND Nurse Practitioner Family
DX: G40.409 Other generalized epilepsy and epileptic syndromes, not intractable, without status epilepticus (principal); E87.20 Acidosis, unspecified; E86.0 Dehydration; Z53.29 Procedure and treatment not carried out because of patient's decision for other reasons; K21.9 Gastro-esophageal reflux disease without esophagitis; F17.200 Nicotine dependence, unspecified, uncomplicated; Z79.899 Other long term (current) drug therapy
CPT/HCPCS: 36415; 70450; 80053; 80307; 80320; 81001; 83605; 85025; 96374; G0378; J7060

== ENCOUNTER 2025-01-31 17:50 | Inpatient (IN) | payer MEDICAID ==
[~2025-01-31] VITALS: Ht 167.6 cm; Wt 55.1 kg
[2025-01-31 18:45] VITALS: PULSE 58; RESP 11; O2SAT 96
[2025-01-31] MEDS: ONDANSETRON HCL 4 MG/2 ML VIAL IV ONE (18:50)
[2025-01-31] MEDS: MORPHINE SULFATE 4 MG/ML SYR/VIAL IV ONE (18:53)
[2025-01-31] MEDS: SODIUM CHLORIDE 0.9% 2,000 ML IV ONE (18:53)
[2025-01-31 18:57] LABS: Nucleated Red Blood Cells % 0.0 %
[2025-01-31 18:58] LABS: Hematocrit 41.1 % (41.0-53.0); Hemoglobin 14.6 g/dL (13.5-17.5); Mean Corpuscular Hemoglobin 37.0 pg (28.0-32.0); Mean Corpuscular Volume 103.9 fL (80.0-100.0)
--- NOTE | 2025-01-31 19:12 | ED.PDOC ---
HPI (NEURO) HPI Comments 34 year old male with a Hx of GERD, Seizures, and Marijuana use presents to the ED for the c/c of 5x Episodes of Tonic Clonic Seizures w/ associated Oral Trauma to the bottom Lip, CABAN, Diffuse ABD pain, and N/V/D. Pt states that the he experienced all of his seizures today, and has since found no alleviating factors since running out of his Seizure Medication. Pt notes he has not been compliant Medication, Pt is noted to be A&Ox4 at this time, and is answering and responding to question appropriately for baseline. No other associated symptoms, modifiers, recent injuries or sick contacts present at this time. Chief Complaint: Seizure Time Seen by MD: 19:06 Primary Care Provider: uto Reviewed Notes: Nurses Notes, Medications, Allergies Information Source: Patient Mode of Arrival: Ambulatory Severity: Moderate Dizziness/Weakness Severity: Bedridden Headache Severity: Moderate Timing: Hours Duration: Since onset, Hours Prehospital treatment: None Seizure Quality: Shaking Headache Quality: Throbbing Headache Location: Generalized Weakness Location: Generalized Numbness Location: Generalized Seizure Location: Generalized Onset: At rest Circumstances: Spontaneous Symptoms: Faintness Before: Normal During: Awake After: Headache, Normal Mentation History of: None Modifying factors: Nothing Associated Signs and Symptoms: Headache, Nausea, Vomiting, Diarrhea Past Medical History PAST MEDICAL HISTORY: GERD, Seizures Surgical History: Denies all surgeries Family History Family History: Reviewed,noncontributory to illness Social History Smoker: Non-Smoker Alcohol: Heavy Drugs: Marijuana Lives In: Home All Other Systems: Reviewed and Negative (Comprehensive systems review obtained and negative except for what is stated in the HPI.) Physical Exam General Appearance: Mild Distress HEENT: Other (Pupils and face symmetric. Moist mucous membranes.) Neck: Full Range of Motion, Normal Inspection Respiratory: Lungs Clear, No Accessory Muscle Use, No Respiratory Distress, Normal Breath Sounds Cardiovascular: No Edema, No JVD, Regular Rate/Rhythm Breast Exam: Deferred Gastrointestinal: Non Tender, Soft Genitalia: Deferred Pelvic: Deferred Rectal: Deferred Extremities: Normal inspection, Normal range of motion, Non-tender, No pedal edema Neurologic: Alert (Oriented x4), Normal Affect, Normal Mood, Other (Moves all extremities. No gross focal deficit.) Cerebellar Function: NOT DONE Reflexes: NOT DONE Skin: Dry, Normal Color, Warm Lymphatic: NOT DONE EKG EKG : Comments Sinus rhythm, rate 59, short ND interval at 99, normal QRS and QTC intervals, right axis deviation, normal QRS, nonspecific T changes. Was a procedure done? Was a procedure done?: No Differential Diagnosis (SZ) Seizure: Psychogenic Seizure, Alcohol Withdrawl, Closed Head Injury, CVA/TIA, Drug Ingestion, Hypoglycemia, Hyponatremia, Syncope, Encephalopathy, Epilepsy- Break Through, Epilepsy-Status CVA: Drug Overdose, Electrolyte Imbalance, Encephalopathy, Hypoglycemia General Weakness: Dehydration, Dysrhythmia, Electrolyte imbalance, Encephalopathy, Hypoglycemia, Renal failure Headache: Closed Head Injury X-Ray, Labs, Meds, VS Vital Signs Date Time Temp Pulse Resp B/P (MAP) Pulse Ox O2 Delivery O2 Flow Rate FiO2 01/31/25 20:21 71 20 97 Room Air* 0 21 01/31/25 20:21 98.2 60 20 105/69 (81) 97 98.2 01/31/25 18:53 75 22 102/55 01/31/25 18:45 58 11 96 Room Air* 0 21 01/31/25 18:38 98.0 59 13 98/79 (85) 96 98.0 01/31/25 18:07 59 01/31/25 17:51 98.0 58 19 101/73 98 98.0 Lab Test 01/31/25 18:42 Range/Units White Blood Count 8.9 4.4-10.8 10^3/uL Red Blood Count 3.95 L 4.5-5.90 10^6/uL Hemoglobin 14.6 13.5-17.5 g/dL Hematocrit 41.1 41.0-53.0 % Mean Corpuscular Volume 103.9 H 80.0-100.0 fL Mean Corpuscular Hemoglobin 37.0 H 28.0-32.0 pg Mean Corpuscular Hemoglobin Concent 35.6 32.0-36.0 g/dL Red Cell Distribution Width 13.3 11.8-14.3 % Platelet Count 122 L 140-450 10^3/uL Mean Platelet Volume 8.0 6.9-10.8 fL Neutrophils (%) (Auto) 86.2 H 37.0-80.0 % Lymphocytes (%) (Auto) 3.8 L 10.0-50.0 % Monocytes (%) (Auto) 9.8 0.0-12.0 % Eosinophils (%) (Auto) 0.0 0.0-7.0 % Basophils (%) (Auto) 0.2 0.0-2.0 % Neutrophils # (Auto) 7.7 1.6-8.6 10 ^3/uL Lymphocytes # (Auto) 0.3 L 0.4-5.4 10 ^3/uL Monocytes # (Auto) 0.9 0-1.3 10 ^3/uL Eosinophils # (Auto) 0 0-0.8 10 ^3/uL Basophils # (Auto) 0 0-0.2 10 ^3/uL Nucleated Red Blood Cells 0.0 % Sodium Level 141 136-145 mmol/L Potassium Level 3.8 3.5-5.1 mmol/L Chloride Level 108 H 98-107 mmol/L Carbon Dioxide Level 22 20-31 mmol/L Anion Gap 11 5-15 Blood Urea Nitrogen 9 9-23 mg/dL Creatinine 0.97 0.700-1.30 mg/dL Glomerular Filtration Rate Calc 104 >90 mL/min BUN/Creatinine Ratio 9.3 L 10.0-20.0 Serum Glucose 97 74-106 mg/dL Lactic Acid Level 1.2 0.4-2.0 mmol/L Calcium Level 9.5 8.7-10.4 mg/dL Total Bilirubin 0.8 0.2-1.0 mg/dL Aspartate Amino Transferase (AST) 117 H 13-40 U/L Alanine Aminotransferase (ALT) 108 H 7-40 U/L Alkaline Phosphatase 43 L 46-116 U/L Total Protein 7.0 5.7-8.2 g/dL Albumin 4.7 3.2-4.8 g/dL Valproic Acid Level 73.0 50-100 ug/mL Current Medications Medications (Trade) Dose Ordered Sig/Drew Route Start Time Stop Time Status Last Admin Sodium Chloride 2,000 ml @ 1,000 mls/hr Q2H ONCE IV 01/31/25 18:45 01/31/25 20:44 01/31/25 18:53 Ondansetron HCl (Zofran) 4 mg ONCE ONCE IV 01/31/25 18:45 01/31/25 18:46 DC 01/31/25 18:50 Morphine Sulfate 4 mg ONCE ONCE IV 01/31/25 18:45 01/31/25 18:46 DC 01/31/25 18:53 PROCEDURE(s): ABPL - CT AB PEL WO CON-NO ORAL OR IV REASON: abd pain n/v/d ORDER NUMBER(s): [id number], ACCESSION NUMBER(s): [id number] CLINICAL HISTORY: abd pain n/v/d TECHNIQUE: CT of the abdomen and pelvis was performed without intravenous contrast. This exam was performed according to our departmental dose optimization program. Up-to-date CT equipment and radiation dose reduction sami hniques are utilized as appropriate. 5.14 CTDI: 5.14 DLP: 260.3 WID: COMPARISON: None FINDINGS: Lower Thorax: Unremarkable. Liver and Biliary system: Unremarkable. Spleen: Unremarkable. Adrenal Glands and Kidneys: Normal adrenal glands. No hydronephrosis. Tiny nonobstructing left upper pole renal calculus. No hydronephrosis. Pancreas and Retroperitoneum: Unremarkable. Aorta and Major Vessels: Aortoiliac vessels are normal in caliber. Trace calcified plaque in the bilateral common femoral arteries. Bowel, Mesentery and Peritoneal space: Normal caliber small and large bowel. Normal appendix. Suggestion of mild wall thickening of the large bowel which is underdistended. There is no free air or fluid collection. Pelvis: Mild bladder wall thickening. Tiny sclerotic focus in the prostate gland. No pelvic lymphadenopathy. Abdominal wall and Osseous Structures: Minor lumbar and lower thoracic spondylosis. No destructive osseous lesion. IMPRESSION: Suggestion of mild wall thickening throughout the large bowel which could be in part due to underdistention versus mild infectious or inflammatory colitis. Mild bladder wall thickening, nonspecific. Correlate with urinalysis if there is clinical concern for cystitis. Tiny nonobstructing left upper pole renal calculus. X-Ray, Labs, Meds, VS Comment 34-year-old male with a history of GERD and seizures presenting with a seizure, abdominal pain, nausea, vomiting and diarrhea Vitals remarkable for heart rate 58 Exam remarkable for mid abdominal tenderness to palpation Rhythm strip independently interpreted by me: Sinus bradycardia, rate 59, no ectopy. CT abdomen and pelvis IMPRESSION: Suggestion of mild wall thickening throughout the large bowel which could be in part due to underdistention versus mild infectious or inflammatory colitis. Mild bladder wall thickening, nonspecific. Correlate with urinalysis if there is clinical concern for cystitis. Tiny nonobstructing left upper pole renal calculus. , CMP and lactic only remarkable for platelets of 122. UA pending. Valproic acid level is within normal range. Patient treated with the following in the ED: 2 L 0.9 normal saline IV bolus, Zofran 4 mg IV, morphine 4 mg IV, Zosyn 4.5 g IV On re-evaluation, patient states abdominal pain and nausea have improved. Vitals were stable. Plan is to admit the patient for pain and emesis control, neurology evaluation. Time of 1ST Reevaluation: 19:57 Reevaluation 1ST: Unchanged Patient Education/Counseling: Diagnosis, Treatment, Need For Follow Up Family Education/Counseling: No Family Present Departure 1 Departure Time of Disposition: 20:31 Impression: Primary Impression: Breakthrough seizure Additional Impressions: Abdominal pain Nausea vomiting and diarrhea Disposition: ADMITTED INPATIENT Admit to: Tele Condition: Fair Critical Care Note Critical Care Time?: No Stability Stability form required: No Heart Score Heart Score: Heart Score Response (Comments) Value History N/A 0 EKG N/A 0 Age N/A 0 Risk Factors N/A 0 Troponin N/A 0 Total 0 I personally scribed for ANTELMO ZHONG MD ([email or web address]) on 01/31/25 at 19:12. Electronically submitted by Dexter He ([email or web address]). I personally scribed for ANTELMO ZHONG MD ([email or web address]) on 01/31/25 at 20:43. Electronically submitted by Dexter He ([email or web address]). ANTELMO ZHONG MD Jan 31, 2025 19:12
[2025-01-31 19:13] LABS: Albumin 4.7 g/dL (3.2-4.8); Anion Gap 11 (5-15); BUN/Creatinine Ratio 9.3 (10.0-20.0); Calcium 9.5 mg/dL (8.7-10.4); Carbon Dioxide 22 mmol/L (20-31); Glucose 97 mg/dL (74-106); Potassium 3.8 mmol/L (3.5-5.1); Sodium 141 mmol/L (136-145); Total Protein 7.0 g/dL (5.7-8.2)
[2025-01-31 19:14] LABS: Bilirubin, Total 0.8 mg/dL (0.2-1.0)
[2025-01-31 19:16] LABS: Alanine Aminotransferase 108 U/L (7-40); Alkaline Phosphatase 43 U/L (46-116); Blood Urea Nitrogen 9 mg/dL (9-23); Chloride 108 mmol/L (98-107)
[2025-01-31 20:21] VITALS: PULSE 71; RESP 20; O2SAT 97
--- NOTE | 2025-01-31 20:21 | DVH ---
CLINICAL HISTORY: abd pain n/v/d TECHNIQUE: CT of the abdomen and pelvis was performed without intravenous contrast. This exam was per formed according to our departmental dose optimization program. Up-to-date CT equipment and radiation dose reduction techniques are utilized as appropriate. 5.14 CTDI: 5.14 DLP: 260.3 WID: COMPARISON: None FINDINGS: Lower Thorax: Unremarkable. Liver and Biliary system: Unremarkable. Spleen: Unremarkable. Adrenal Glands and Kidneys: Normal adrenal glands. No hydronephrosis. Tiny nonobstructing left upper pole renal calculus. No hydronephrosis. Pancreas and Retroperitoneum: Unremarkable. Aorta and Major Vessels: Aortoiliac vessels are normal in caliber. Trace calcified plaque in the bila teral common femoral arteries. Bowel, Mesentery and Peritoneal space: Normal caliber small and large bowel. Normal appendix. Suggest ion of mild wall thickening of the large bowel which is underdistended. There is no free air or fluid collection. Pelvis: Mild bladder wall thickening. Tiny sclerotic focus in the prostate gland. No pelvic lymphaden opathy. Abdominal wall and Osseous Structures: Minor lumbar and lower thoracic spondylosis. No destructive o sseous lesion. IMPRESSION: Suggestion of mild wall thickening throughout the large bowel which could be in part due to underdist ention versus mild infectious or inflammatory colitis. Mild bladder wall thickening, nonspecific. Correlate with urinalysis if there is clinical concern fo r cystitis. Tiny nonobstructing left upper pole renal calculus.
[2025-01-31] MEDS: PIPERACILLIN-TAZO 4.5GM 100 ML IV ONE (21:11)
[2025-01-31] MEDS: ACETAMINOPHEN IV 1000 MG/100ML (10MG/ML) IV ONE (22:00)
[2025-01-31 23:40] LABS: Urine Protein, UAD Negative (Negative)
--- NOTE | 2025-02-01 02:57 | DVHHPRES ---
History of Present Illness Resident Creating Document: LIOR DE LA TORRE RESIDENT History of Present Illness 34-year-old man with history of seizure disorder comes to the ER with the complaints of several episodes of seizure since morning which was witnessed by his . The patient could not recall his seizure medications. The patient was confused after the episode. He reports having intractable diffuse abdominal pain rating 8/10. Associated with episodes of nausea and vomiting containing clear liquids. The pain is nonradiating, no aggravating or relieving factor noticed. The patient reports having bilateral headache rating 8/10, the beeping sound of of the hospital telemetry was making his headache worse. Past medical history: Seizure disorder, GERD, marijuana and alcohol use disorder Past surgical history: None Home medications: Vimpat and sodium divalproex Family history: Noncontributory PCP: Can not recall Smoking history: He has been smoking since last 5 years Alcohol: He takes few cans of beer every day. Allergies: None Lives with family Code status: Full code Review of Systems Gastrointestinal: Abdominal Pain Neurological: Seizures, Other Allergies: Coded Allergies: NO KNOWN ALLERGIES (Unverified , 08/30/21) Medications Current Medications Medications Dose Ordered Sig/Drew Route Start Time Stop Time Status Last Admin Dose Admin Divalproex Sodium 500 mg BID PO 01/31/25 22:00 01/31/25 22:00 500 MG Exam Vital Signs Vital Signs Date Time Temp Pulse Resp B/P (MAP) Pulse Ox O2 Delivery O2 Flow Rate FiO2 02/01/25 00:00 59 01/31/25 23:33 98.2 18 106/63 (77) 99 98.2 01/31/25 20:21 Room Air* 0 21 Exam Pt is lying on bed General Appearance: Alert, Oriented X3, Cooperative, Mild distress HEENT: Tongue piercing, lower lip injury, Mucous membranes moist/pink Respiratory: Clear to auscultation, Normal air movement, No added sounds Cardiovascular: Regular rate, Normal S1, Normal S2, No murmurs Abdominal/ : Active bowel sounds, Soft, no distention, diffuse tenderness Extremities: No edema, Normal pulses, No tenderness/swelling Skin: No Significant rash, except past surgical scars Neuro: Normal speech, sensorimotor deficits none Psych/Mental Status: Mental status NL, Mood NL Nurse was there as stunt driver during examination Labs/Xrays Labs Test 01/31/25 23:32 01/31/25 18:42 Range/Units Urine Color Light-yellow Yellow Urine Clarity Clear Clear Urine pH 5.5 5.0-9.0 Urine Specific [place] 1.015 1.001-1.035 Urine Protein Negative Negative Urine Ketones 1+ H Negative Urine Blood Trace H Negative /uL Urine Nitrite Negative Negative Urine Bilirubin Negative Negative Urine Urobilinogen Normal Negative mg/dL Urine Leukocyte Esterase Negative Negative /uL Urine RBC 2 0 - 3 /hpf Urine Microscopic WBC < 1 0-3 /HPF Urine Squamous Epithelial Cells Few <5 /hpf Urine Bacteria None seen None Seen /hpf Urine Glucose Normal Normal mg/dL White Blood Count 8.9 4.4-10.8 10^3/uL Red Blood Count 3.95 L 4.5-5.90 10^6/uL Hemoglobin 14.6 13.5-17.5 g/dL Hematocrit 41.1 41.0-53.0 % Mean Corpuscular Volume 103.9 H 80.0-100.0 fL Mean Corpuscular Hemoglobin 37.0 H 28.0-32.0 pg Mean Corpuscular Hemoglobin Concent 35.6 32.0-36.0 g/dL Red Cell Distribution Width 13.3 11.8-14.3 % Platelet Count 122 L 140-450 10^3/uL Mean Platelet Volume 8.0 6.9-10.8 fL Neutrophils (%) (Auto) 86.2 H 37.0-80.0 % Lymphocytes (%) (Auto) 3.8 L 10.0-50.0 % Monocytes (%) (Auto) 9.8 0.0-12.0 % Eosinophils (%) (Auto) 0.0 0.0-7.0 % Basophils (%) (Auto) 0.2 0.0-2.0 % Neutrophils # (Auto) 7.7 1.6-8.6 10 ^3/uL Lymphocytes # (Auto) 0.3 L 0.4-5.4 10 ^3/uL Monocytes # (Auto) 0.9 0-1.3 10 ^3/uL Eosinophils # (Auto) 0 0-0.8 10 ^3/uL Basophils # (Auto) 0 0-0.2 10 ^3/uL Nucleated Red Blood Cells 0.0 % Sodium Level 141 136-145 mmol/L Potassium Level 3.8 3.5-5.1 mmol/L Chloride Level 108 H 98-107 mmol/L Carbon Dioxide Level 22 20-31 mmol/L Anion Gap 11 5-15 Blood Urea Nitrogen 9 9-23 mg/dL Creatinine 0.97 0.700-1.30 mg/dL Glomerular Filtration Rate Calc 104 >90 mL/min BUN/Creatinine Ratio 9.3 L 10.0-20.0 Serum Glucose 97 74-106 mg/dL Lactic Acid Level 1.2 0.4-2.0 mmol/L Calcium Level 9.5 8.7-10.4 mg/dL Total Bilirubin 0.8 0.2-1.0 mg/dL Aspartate Amino Transferase (AST) 117 H 13-40 U/L Alanine Aminotransferase (ALT) 108 H 7-40 U/L Alkaline Phosphatase 43 L 46-116 U/L Total Protein 7.0 5.7-8.2 g/dL Albumin 4.7 3.2-4.8 g/dL Valproic Acid Level 73.0 50-100 ug/mL SEPSIS Sepsis Screen Date sepsis recognized/suspect: Jan 31, 2025 Time Sepsis recognized/suspect: 2023 Recent Procedure: No On Antibiotic Therapy: No Respiratory Rate >20: No Heart Rate >90: No Temp<36 C (96.8 F) or >38.3 C: No SBP <90 or MAP <65 mmHG: No New Acute Mental Status Change: No Is the patient on CPAP, BIPAP,: No Physician Orders Admit (01/31/25 21:49) Code Status (01/31/25 21:49) Oxygen Per Hour (01/31/25 21:49) Complete Blood Count (02/01/25 04:00) Comprehensive Metabolic Panel (02/01/25 04:00) Notify Md Of Changes From Base (01/31/25 21:49) Emergency Dysrhythmia Protocol (01/31/25 21:49) Rhythm Strips Once Every Shift (01/31/25 21:49) [employer] Specialist For 24 Hours (01/31/25 21:49) Divalproex Dr Tablet (Depakote "Dr" Tabl (01/31/25 22:00) * Neurology Consult (01/31/25 21:58) Full Liq Diet (02/01/25 Breakfast) Vital Signs Date Time Temp Pulse Resp B/P (MAP) Pulse Ox O2 Delivery O2 Flow Rate FiO2 02/01/25 00:00 59 01/31/25 23:33 98.2 58 18 106/63 (77) 99 98.2 01/31/25 21:20 58 01/31/25 20:21 71 20 97 Room Air* 0 21 01/31/25 20:21 98.2 60 20 105/69 (81) 97 98.2 01/31/25 19:23 66 20 132/88 01/31/25 18:53 75 22 102/55 Laboratory Tests Test 01/31/25 18:42 Lactic Acid Level 1.2 mmol/L (0.4-2.0) White Blood Count 8.9 10^3/uL (4.4-10.8) Medications Medications Dose Ordered Sig/Drew Route Start Time Stop Time Status Last Admin Dose Admin Acetaminophen 1,000 mg ONCE ONCE IV 01/31/25 22:00 01/31/25 22:30 DC 01/31/25 22:00 1,000 MG Divalproex Sodium 500 mg BID PO 01/31/25 22:00 01/31/25 22:00 500 MG Morphine Sulfate 4 mg ONCE ONCE IV 01/31/25 18:45 01/31/25 18:46 DC 01/31/25 18:53 4 MG Ondansetron HCl 4 mg ONCE ONCE IV 01/31/25 18:45 01/31/25 18:46 DC 01/31/25 18:50 4 MG Piperacillin Sod/ Tazobactam Sod 100 ml @ 100 mls/hr ONCE ONCE IV 01/31/25 20:45 01/31/25 21:44 DC 01/31/25 21:11 100 MLS/HR Sodium Chloride 2,000 ml @ 1,000 mls/hr Q2H ONCE IV 01/31/25 18:45 01/31/25 20:44 DC 01/31/25 18:53 1,000 MLS/HR Assessment/Plan Assessment/Plan Seizure disorder: -Sodium divalproex -Vimpat -check drug levels if possible -neurology consult Abdominal pain due to pancreatitis/renal stone/gastroenteritis?? CT scan of the abdomen and pelvis: Suggestion of mild wall thickening throughout the large bowel which could be in part due to underdistention versus mild infectious or inflammatory colitis.Mild bladder wall thickening, nonspecific.Correlate with urinalysis if there is clinical concern for cystitis.Tiny nonobstructing left upper pole renal calculus. -NPO -normal saline -morphine injection Nonobstructing left renal calculi -tamsulosin, if blood pressure improves -strain urine Transaminitis: AST 117, ALT 108 ALP 43 Monitor labs Consult GI if necessary Thrombocytopenia: Platelet count 122 Bradycardia: Monitor heart rate Consider EKG GERD: Pantoprazole Marijuana and alcohol use disorder: Counseling done more for more than 27 minutes regarding cessation of the drug GI prophylaxis: Pantoprazole DVT prophylaxis: Not indicated Diet: NPO until further order Goals of care discussed with the patient for more than 27 minutes: Full code status Case discussed with Dr. Hood, patient and RN Plan discussed with: Patient, Other (RN) My Orders Orders - LIOR DE LA TORRE RESIDENT Procedure Category Date Status Time Admit ADMIT 01/31/25 Transmitted 21:49 Code Status CODE 01/31/25 Transmitted 21:49 Oxygen Per Hour RT 01/31/25 Transmitted 21:49 Complete Blood Count LAB 02/01/25 Logged 04:00 Comprehensive LAB 02/01/25 Logged Metabolic Panel 04:00 Notify Of Changes [facility] 01/31/25 In Process From Base 21:49 Emergency Dysrhythmia [facility] 01/31/25 In Process Protocol 21:49 Rhythm Strips Once [facility] 01/31/25 In Process Every Shift 21:49 Lean Manufacturing Specialist For [facility] 01/31/25 In Process 24 Hours 21:[address] Tablet PHA 01/31/25 In Process (Depakote "Dr" Tabl 22:00 * Neurology Consult CONS 01/31/25 Transmitted 21:58 Full Liq Diet DIET 02/01/25 Transmitted Breakfast LIOR DE LA TORRE RESIDENT Feb 01, 2025 02:57
[2025-02-01] MEDS ORDERED: MORPHINE SULFATE INJ 2 MG/ml SYRG IV PRN (03:30)
[2025-02-01] MEDS: SODIUM CHLORIDE 0.9% 1,000 ML IV SCH (03:30)
[2025-02-01] MEDS ORDERED: MORPHINE SULFATE INJ 2 MG/ml SYRG IM ONE (03:30)
[2025-02-01 04:28] LABS: Hemoglobin 13.4 g/dL (13.5-17.5); Nucleated Red Blood Cells % 0.2 %
[2025-02-01 04:33] LABS: Hematocrit 38.2 % (41.0-53.0); Mean Corpuscular Hemoglobin 37.3 pg (28.0-32.0); Mean Corpuscular Volume 106.1 fL (80.0-100.0)
[2025-02-01 04:51] LABS: Albumin 3.5 g/dL (3.2-4.8); Anion Gap 12 (5-15); BUN/Creatinine Ratio 5.9 (10.0-20.0); Bilirubin, Total 0.6 mg/dL (0.2-1.0); Chloride 106 mmol/L (98-107); Sodium 137 mmol/L (136-145)
[2025-02-01 04:53] LABS: Alanine Aminotransferase 76 U/L (7-40); Alkaline Phosphatase 32 U/L (46-116); Blood Urea Nitrogen 5 mg/dL (9-23); Calcium 7.5 mg/dL (8.7-10.4); Carbon Dioxide 19 mmol/L (20-31); Glucose 68 mg/dL (74-106); Potassium 3.4 mmol/L (3.5-5.1); Total Protein 5.5 g/dL (5.7-8.2)
[2025-02-01] MEDS: PANTOPRAZOLE 40 MG TAB PO SCH (06:19)
[2025-02-01] MEDS: SODIUM CHLORIDE 0.9% 1,900 ML IV ONE (06:43)
[2025-02-01 08:00] VITALS: PULSE 60; RESP 18; O2SAT 97
--- NOTE | 2025-02-01 08:43 | DVHPNRES ---
Progress Note Date Seen: Feb 01, 2025 Resident Creating Document: CHRISTEN MAY RESIDENT Medical Necessity Reason Pt with a Central, PICC or Fol: No Subjective Review of Systems Maximo Deras is a 34-year-old male with past medical history of epilepsy, presented to the ER with chief complaint of seizure episode. He complains of biting his lips, confusion, headache. could not recall his seizure medications. The patient was confused after the episode. He reports having intractable diffuse abdominal pain rating 8/10. Associated with episodes of nausea and vomiting containing clear liquids. He reported bilateral headache rating 8/10 on admission. He was examined at bedside today. Continues to report of confusion. He consented to Telephonic conversation with his provided further information on the episode, she witnessed the episodes. reported 5 episodes of seizures in a day after not taking his seizure medications. He ran out of home medications valproate and lacosamide. MRI showed temporal lobes swelling last year. He follows up with neurologist in [place]. His vitals show low blood pressure, tachypnea, bradycardia. PMHx: Epilepsy Social history: reported 6 beers day before the seizure, marijuana use, day before seizure. Smoking half to 1 pack per day. ROS: Constitutional: Complains of chills. HEENT: Denies changes in vision and hearing. Respiratory: Denies shortness of breath and cough Cardiovascular: Denies chest discomfort or palpitations GI: Nausea, vomiting after the seizure episode. : Denies dysuria and urinary frequency. Musculoskeletal: Denies myalgias and joint pain Skin: Denies rash and pruritus. Neurological: Denies dizziness, headache, vision or hearing problems Objective vital signs Vital Sign Date Time Temp Pulse Resp B/P (MAP) Pulse Ox O2 Delivery O2 Flow Rate FiO2 02/01/25 06:45 98.1 65 18 101/54 (70) 97 98.1 01/31/25 20:21 Room Air* 0 21 medications Current Medications Medications Dose Ordered Sig/Drew Route Start Time Stop Time Status Last Admin Dose Admin Divalproex Sodium 500 mg BID PO 01/31/25 22:00 01/31/25 22:00 500 MG Pantoprazole Sodium 40 mg DAILY@0600 PO 02/01/25 06:00 02/01/25 06:19 40 MG Sodium Chloride 1,000 ml @ 75 mls/hr [id number] IV 02/01/25 03:30 02/01/25 03:30 75 MLS/HR Morphine Sulfate 1 mg Q6HP PRN IV 02/01/25 03:30 Examination General: Patient alert and oriented in person, place and time. Patient following commands. HEENT: Normocephalic, atraumatic, moist mucous membranes Respiratory/pulmonary: Clear lungs bilaterally, vesicular murmurs present in almost all lung ha, no associated crackles or wheezes. Cardiovascular: Normal heart sounds S1 and S2 with no associated murmurs Abdomen: Abdomen nondistended, there is no pain to palpation in any of the abdominal quadrants, no palpable masses. Extremities: There is no peripheral edema present at the lower extremities. Skin: No rashes or pruritus, there is no sacral edema present at this time. Neurological: Intact cranial nerves with no focal neurologic deficits laboratory and microbiology Laboratory Tests 02/01/25 03:41 Test 02/01/25 03:41 Range/Units Serum Glucose 68 L 74-106 mg/dL Labs and/or images reviewed: Labs reviewed by me, Image(s) reviewed by me Problem List/Assessment/Plan Problem List/Assessment/Plan Intractable abdominal pain, nausea, vomiting due to infectious colitis, possible Administered IV fluids, IV piperacillin tazobactam Pain medications Seizure episode History of epilepsy Started on telemetry Pain management IV fluids given Neurology consulted Ordered CT abdomen without contrast Monocytosis Thrombocytopenia due to alcohol use disorder Labs show platelet 87k Hypokalemia due to alcohol use disorder potassium 3.4 Continue monitoring and managing Hypoglycemia Glucose 68 Hypocalcemia Asymptomatic hypocalcemia; Calcium 7.5 Elevated liver enzymes due to alcohol use disorder Elevated AST, ALT, ALP Nephrolithiasis, CT finding CT revealed Tiny nonobstructing left upper pole renal calculus Polysubstance use disorder Counseled the patient for 22 minutes on alcohol/marijuana/tobacco use cessation including 14 minutes for tobacco use cessation DIET: NPO CODE STATUS: Goals of care discussed with patient at bedside for 20 minutes; Full code DISPOSITION: overflow Patient's status and plan discussed with the patient. Case discussed with Dr. Ontiveros. Plan discussed with: Patient, Other (Nurse) Addendum Addendum Addendum I was physically present for the glass portions of the service provided to patient by THE RESIDENT. I have reviewed the documentation, discussed the case with resident and agree with the resident's documentation except as noted. Also the patient's clinical case was discussed with the patient's nurse. This medical document was created using an electronic medical record system with computerized dictation system. Although this document has been carefully reviewed, there might still be some phonetic and typographical errors. These areas are purely typographical due to imperfections of the software programs, and do not reflect any compromise in the patient's medical care. Late signature. Date of Service: Feb 01, 2025 Billing Provider: VELASQUEZ ONTIVEROS MD Common Visit Codes: 61023-[id number] INP/OBS CARE(HIGH) Secondary Visit Codes: 48132-[id number] CHNG SMOKING >10MIN (22 minutes on alcohol/marijuana/tobacco use cessation including 14 minutes for tobacco use cessation), 46042-[id number] CARE PLAN 30 MINUTES (20 minutes) CHRISTEN MAY RESIDENT Feb 01, 2025 08:43 VELASQUEZ ONTIVEROS MD Feb 03, 2025 13:56
[2025-02-01] MEDS ORDERED: POTASSIUM EFFERVESENT TAB 25 MEQ PO ONE (13:00)
[2025-02-01 14:00] VITALS: BP 105/68; PULSE 65; RESP 12; TEMP 99; O2SAT 99
[2025-02-01 14:23] LABS: Opiate Scree,Urine Pos (NEGATIVE)
[2025-02-01 14:24] LABS: Amphetamine Screen, Urine Neg (NEGATIVE); Barbiturate Scree,Urine Neg (NEGATIVE); Benzodiazephine Screen, Urine Neg (NEGATIVE); Cannabinoid Screen, Urine Pos (NEGATIVE); Cocaine Screen, Urine Neg (NEGATIVE); Phencyclidine Screen, Urine Neg (NEGATIVE)
--- NOTE | 2025-02-01 17:47 | DVHDSRES ---
Discharge Summary Date of Admission Resident Creating Document: CHRISTEN MAY RESIDENT Jan 31, 2025 at 21:49 Date of Discharge: Feb 01, 2025 Admitting Diagnosis Breakthrough seizure Labs/Diagnostic Data: Laboratory Results Test 02/01/25 03:41 01/31/25 23:32 01/31/25 22:32 01/31/25 18:42 White Blood Count 8.1 10^3/uL (4.4-10.8) Red Blood Count 3.60 10^6/uL (4.5-5.90) Hemoglobin 13.4 g/dL (13.5-17.5) Hematocrit 38.2 % (41.0-53.0) Mean Corpuscular Volume 106.1 fL (80.0-100.0) Mean Corpuscular Hemoglobin 37.3 pg (28.0-32.0) Mean Corpuscular Hemoglobin Concent 35.2 g/dL (32.0-36.0) Red Cell Distribution Width 13.5 % (11.8-14.3) Platelet Count 87 10^3/uL (140-450) Mean Platelet Volume 8.3 fL (6.9-10.8) Neutrophils (%) (Auto) 63.0 % (37.0-80.0) Lymphocytes (%) (Auto) 19.9 % (10.0-50.0) Monocytes (%) (Auto) 16.6 % (0.0-12.0) Eosinophils (%) (Auto) 0.1 % (0.0-7.0) Basophils (%) (Auto) 0.4 % (0.0-2.0) Neutrophils # (Auto) 5.1 10 ^3/uL (1.6-8.6) Lymphocytes # (Auto) 1.6 10 ^3/uL (0.4-5.4) Monocytes # (Auto) 1.3 10 ^3/uL (0-1.3) Eosinophils # (Auto) 0 10 ^3/uL (0-0.8) Basophils # (Auto) 0 10 ^3/uL (0-0.2) Nucleated Red Blood Cells 0.2 % Sodium Level 137 mmol/L (136-145) Potassium Level 3.4 mmol/L (3.5-5.1) Chloride Level 106 mmol/L (98-107) Carbon Dioxide Level 19 mmol/L (20-31) Anion Gap 12 (5-15) Blood Urea Nitrogen 5 mg/dL (9-23) Creatinine 0.85 mg/dL (0.700-1.30) Glomerular Filtration Rate Calc 116 mL/min (>90) BUN/Creatinine Ratio 5.9 (10.0-20.0) Serum Glucose 68 mg/dL (74-106) Calcium Level 7.5 mg/dL (8.7-10.4) Total Bilirubin 0.6 mg/dL (0.2-1.0) Aspartate Amino Transferase (AST) 66 U/L (13-40) Alanine Aminotransferase (ALT) 76 U/L (7-40) Alkaline Phosphatase 32 U/L (46-116) Total Protein 5.5 g/dL (5.7-8.2) Albumin 3.5 g/dL (3.2-4.8) Urine Color Light-yellow (Yellow) Urine Clarity Clear (Clear) Urine pH 5.5 (5.0-9.0) Urine Specific [place] 1.015 (1.001-1.035) Urine Protein Negative (Negative) Urine Ketones 1+ (Negative) Urine Blood Trace /uL (Negative) Urine Nitrite Negative (Negative) Urine Bilirubin Negative (Negative) Urine Urobilinogen Normal mg/dL (Negative) Urine Leukocyte Esterase Negative /uL (Negative) Urine RBC 2 /hpf (0 - 3) Urine Microscopic WBC < 1 /HPF (0-3) Urine Squamous Epithelial Cells Few /hpf (<5) Urine Bacteria None seen /hpf (None Seen) Urine Glucose Normal mg/dL (Normal) Urine Opiates Screen Pos (NEGATIVE) Urine Fentanyl Screen Neg (NEGATIVE) Urine Barbiturates Screen Neg (NEGATIVE) Urine Phencyclidine Screen Neg (NEGATIVE) Urine Amphetamines Screen Neg (NEGATIVE) Urine Benzodiazepines Screen Neg (NEGATIVE) Urine Cocaine Screen Neg (NEGATIVE) Urine Cannabinoids Screen Pos (NEGATIVE) Lactic Acid Level 1.2 mmol/L (0.4-2.0) Valproic Acid Level 73.0 ug/mL (50-100) Other Laboratory Tests 02/01/25 03:41 Brief Hx & Hospital Course: Maximo Deras is a 34-year-old male with past medical history of epilepsy, presented to the ER with chief complaint of seizure episode. He complains of biting his lips, confusion, headache. could not recall his seizure medications. The patient was confused after the episode. He reports having intractable diffuse abdominal pain rating 8/10. Associated with episodes of nausea and vomiting containing clear liquids. He reported bilateral headache rating 8/10 on admission. He was examined at bedside today. Continues to report of confusion. He consented to Telephonic conversation with his provided further information on the episode, she witnessed the episodes. reported 5 episodes of seizures in a day after not taking his seizure medications. He ran out of home medications valproate and lacosamide. MRI showed temporal lobes swelling last year. He follows up with neurologist in [place]. His vitals show low blood pressure, tachypnea, bradycardia. Physical examination as documented in the progress note of the day of leaving AMA Hospital course: Admitted in the line of of seizure episode and intractable abdominal pain, nausea, vomiting. He was started on telemetry, CT abdomen ordered which revealed colitis, started on IV fluids and piperacillin tazobactam. He was monitored on telemetry. Neurology was consulted. Labs revealed hypocalcemia, elevated liver enzymes, thrombocytopenia. Patient left [facility] without further evaluation and management could be completed. Discharge diagnosis: Seizure episode History of epilepsy Intractable abdominal pain, nausea, vomiting due to infectious colitis, possible Monocytosis Thrombocytopenia Hypokalemia Hypoglycemia Hypocalcemia Elevated liver enzymes Nephrolithiasis, CT finding Polysubstance use disorder Operations or Procedures CT of the abdomen and pelvis was performed without intravenous contrast. This exam was performed according to our departmental dose optimization program. Up-to-date CT equipment and radiation dose reduction techniques are utilized as appropriate. 5.14 CTDI: 5.14 DLP: 260.3 WID: COMPARISON: None FINDINGS: Lower Thorax: Unremarkable. Liver and Biliary system: Unremarkable. Spleen: Unremarkable. Adrenal Glands and Kidneys: Normal adrenal glands. No hydronephrosis. Tiny nonobstructing left upper pole renal calculus. No hydronephrosis. Pancreas and Retroperitoneum: Unremarkable. Aorta and Major Vessels: Aortoiliac vessels are normal in caliber. Trace calcified plaque in the bilateral common femoral arteries. Bowel, Mesentery and Peritoneal space: Normal caliber small and large bowel. Normal appendix. Suggestion of mild wall thickening of the large bowel which is underdistended. There is no free air or fluid collection. Pelvis: Mild bladder wall thickening. Tiny sclerotic focus in the prostate gland. No pelvic lymphadenopathy. Abdominal wall and Osseous Structures: Minor lumbar and lower thoracic spondylosis. No destructive osseous lesion. IMPRESSION: Suggestion of mild wall thickening throughout the large bowel which could be in part due to underdistention versus mild infectious or inflammatory colitis. Mild bladder wall thickening, nonspecific. Correlate with urinalysis if there is clinical concern for cystitis. Tiny nonobstructing left upper pole renal calculus. Condition at Discharge: Undetermined (Left AMA) Final Diagnosis/Problems List Seizure episode History of epilepsy Intractable abdominal pain, nausea, vomiting due to infectious colitis, possible Monocytosis Polysubstance use disorder Thrombocytopenia Hypokalemia Hypoglycemia Hypocalcemia Elevated liver enzymes Nephrolithiasis, CT finding Discharge Disposition: AMA Discharge Instruct/Medications Diet: See Comment Diet comment: Left AMA Activity: See Comment Activity comment: Left AMA Follow Up/Referral: Left AMA Medications: Left AMA Scheduled Divalproex Sodium (Divalproex Sodium), 1 TAB PO BID, (Reported) Lacosamide (Vimpat), 1 TAB PO BID, (Reported) Miscellaneous Medications Famotidine (Pepcid Tablet), 1 TAB PO, (Reported) Discharge Statement: "Patient was advised to return to the ER or call 911 if any headaches, dizziness, shortness of breath, chest pain, abdominal pain, bleeding, fevers, or worsening of medical condition. Patient was counseled about treatment plan, medications, possible side effects, patientverbalized understanding. All questions were answered to the best of my ability. This discharge took greater then 30 minutes in planning, reviewing documentation, counseling the patient, and discussing with other team members." ASSESSMENT ASSESSMENT Assessment Addendum Addendum Addendum I was physically present for the glass portions of the service provided to patient by THE RESIDENT. I have reviewed the documentation, discussed the case with resident and agree with the resident's documentation except as noted. Also the patient's clinical case was discussed with the patient's nurse. This medical document was created using an electronic medical record system with computerized dictation system. Although this document has been carefully reviewed, there might still be some phonetic and typographical errors. These areas are purely typographical due to imperfections of the software programs, and do not reflect any compromise in the patient's medical care. Late signature. Date of Service: Feb 01, 2025 Billing Provider: VELASQUEZ ONTIVEROS MD Common Visit Codes: 97671-OFW/OBS DISCH DAY >30min CHRISTEN MAY RESIDENT Feb 01, 2025 17:47 VELASQUEZ ONTIVEROS MD Feb 03, 2025 14:00
== END 2025-02-01 14:30 | disposition left against medical advice (07) | DRG 53 ==
LOC: ER 17:50 → OVERFLOW 21:49
PROVIDERS: ATTEND Emergency Medicine
DX: G40.909 Epilepsy, unspecified, not intractable, without status epilepticus (principal); D69.6 Thrombocytopenia, unspecified; E83.51 Hypocalcemia; A09 Infectious gastroenteritis and colitis, unspecified; Z53.29 Procedure and treatment not carried out because of patient's decision for other reasons; E87.6 Hypokalemia; N20.0 Calculus of kidney; E16.2 Hypoglycemia, unspecified; K21.9 Gastro-esophageal reflux disease without esophagitis; R74.01 Elevation of levels of liver transaminase levels; Z91.199 Patient's noncompliance with other medical treatment and regimen due to unspecified reason; Z79.899 Other long term (current) drug therapy; F10.90 Alcohol use, unspecified, uncomplicated
CPT/HCPCS: 36415; 74176; 80053; 80164; 80307; 81001; 83605; 85025; 87040; 96361; 96365; 96375; G0378; J0131; J2405; J2543